=== PATIENT | female | born 1940 | race Caucasian/White ===

== ENCOUNTER 2020-10-14 13:06 | Emergency (ER) | payer MEDICARE, SELFPAY ==
--- NOTE | ~2020-10-14 | XR_ITS ---
EXAMINATION: XR chest 2V DATE: 10/14/2020 13:53 INDICATION: Right lower back pain and 7 weeks of cough TECHNIQUE: frontal and lateral views of the chest were obtained. COMPARISON: Chest radiograph dated 11/26/2012 FINDINGS: Small calcified nodule at the left upper lung consistent with old granulomatous disease. The lungs re main otherwise clear with no focal airspace opacities, pulmonary edema, pleural effusion or pneumotho rax. The cardiomediastinal silhouette is normal. New surgical clips at the right breast. Old healed p roximal right humeral fracture deformity. Severe thoracolumbar spondylosis. IMPRESSION: 1. No acute cardiopulmonary disease. Reviewed, dictated and finalized at location A. CONSULTANT
[2020-10-14 13:18] VITALS: BP 143/64; PULSE 87; RESP 18; TEMP 36.7; O2SAT 99
--- NOTE | 2020-10-14 13:45 | ED.GENADULT ---
HPI - General Adult General Chief complaint: Upper Respiratory Infection Stated complaint: back pain from cough Time Seen by Provider: 10/14/20 13:32 Source: patient and RN notes reviewed Mode of arrival: ambulatory Limitations: no limitations History of Present Illness HPI narrative: Patient presents today complaining of 1 month history of dry cough with a 3-day history of right-sided low back pain, possibly due to coughing episodes. Patient states she believes her cough is due to postnasal drip, as she does stop coughing after she blows her nose. Denies history of asthma or COPD. She did stop taking her Claritin approximately 1 month ago. She has been using cough drops without much relief. States she is short of breath with exertion, but reports that this is baseline for her. Denies any current fever. MD complaint: Dry cough Related Data Home Medications Medication Instructions Recorded Confirmed alendronate 70 mg PO WEEKLY 10/14/20 10/14/20 levothyroxine 125 mcg PO DAILY 10/14/20 10/14/20 losartan 100 mg PO DAILY 10/14/20 10/14/20 metformin 750 mg PO BID 10/14/20 10/14/20 omeprazole 20 mg PO DAILY 10/14/20 10/14/20 Allergies Allergy/AdvReac Type Severity Reaction Status Date / Time No Known Allergies Allergy Mild Verified 10/14/20 13:32 Review of Systems Review of Systems: Narrative: CONSTITUTIONAL: Denies body aches, fever, chills, or sweats. EYES: Denies visual changes, redness, or discharge. ENT: Denies rhinorrhea, congestion, sore throat, or otalgia. CARDIOVASCULAR: Denies chest pain, palpitations, or edema. RESPIRATORY: Denies dyspnea. + Cough GASTROINTESTINAL: Denies abdominal pain, nausea, vomiting, or diarrhea. GENITOURINARY: Denies dysuria or hematuria. SKIN: Denies rash, itching, or wounds. MUSCULOSKELETAL: Denies joint pain, or myalgia. + Back pain NEUROLOGIC: Denies headache, numbness, tingling, or weakness. PSYCH: Denies depression or anxiety. [facility] Past Medical History Medical History (Updated 10/14/20 @ 19:39 by Alejandra Nieto, [employer], ) Diabetes GERD (gastroesophageal reflux disease) Hypertension Hypothyroidism Osteoporosis Comments At time of signature, I have reviewed and agree with nursing past medical, surgical, social and family history unless otherwise noted. Please see nursing chart for further information. There is no relevant family history pertinent to the presenting complaint Exam Narrative: Exam Narrative: GENERAL: Well-appearing, well-nourished, and in no acute distress. HEAD: Normocephalic, atraumatic. EYES: EOMI. No redness or drainage. Conjunctivae normal. ENT: Mucous membranes pink and moist. Nares clear. No rhinorrhea. TMs normal bilaterally. Throat normal. Uvula midline. NECK: Normal AROM. Supple. No lymphadenopathy. CHEST: No respiratory distress. Clear to auscultation. HEART: Regular rate and rhythm. No murmur appreciated. Normal peripheral pulses. ABDOMEN: Soft, nontender, nondistended, normal active bowel sounds. MUSCULOSKELETAL: No bony tenderness of the spine. Patient localizes her back pain in the right lower lumbar area, but this area is nontender to palpation. EXTREMITIES: Normal range of motion. No edema. SKIN: Warm, dry, no rash. Capillary refill normal. Normal skin turgor. NEURO: No focal deficits. Alert and oriented x3. Gait steady. PSYCH: Normal affect. No signs of depression or anxiety. Course Vital Signs Vital signs: Vital Signs Temperature 98.1 F 10/14/20 13:18 Pulse Rate 87 10/14/20 13:18 Respiratory Rate 18 10/14/20 13:18 Blood Pressure 143/64 H 10/14/20 13:18 Pulse Oximetry 99 10/14/20 13:18 Temperature 98.1 F 10/14/20 13:18 Pulse Rate 87 10/14/20 13:18 Respiratory Rate 18 10/14/20 13:18 Blood Pressure 143/64 H 10/14/20 13:18 Pulse Oximetry 99 10/14/20 13:18 Reviewed. Pt has been instructed to follow up with her PCP regarding her elevated blood pressure today. Medical Decision Making
== END 2020-10-14 14:20 | disposition home or self-care (01) ==
PROVIDERS: Emergency Provider Nurse Practitioner; PCP Internal Medicine
DX: J40 Bronchitis, not specified as acute or chronic (principal); E11.9 Type 2 diabetes mellitus without complications; K21.9 Gastro-esophageal reflux disease without esophagitis; I10 Essential (primary) hypertension; E03.9 Hypothyroidism, unspecified; M81.0 Age-related osteoporosis without current pathological fracture
CPT/HCPCS: 71046; 99203; G0463